=== PATIENT | female | born 1995 | race Caucasian/White ===

== ENCOUNTER 2025-04-12 05:16 | Emergency (ER) | payer OTHER, SELFPAY ==
[2025-04-12 05:18] VITALS: BP 104/70
[2025-04-12 05:34] VITALS: BMI 34.8
[2025-04-12 05:55] LABS: Hematocrit 35.3 % (37.0-47.0); Hemoglobin 11.9 g/dL (12.0-16.0); Mean Corp Hgb Conc. 33.7 g/dL (33.0-37.0); Mean Corpuscular Volume 84.9 fL (81.0-99.0); Nucleated Red Blood Cells % 0 %; Platelet Count 254 10^3/uL (130-400); Red Cell Dist. Width 12.8 % (11.5-14.5)
[2025-04-12 06:10] LABS: ALT (SGPT) 17 U/L (0-35); AST (SGOT) 18 U/L (14-36); Albumin 3.9 g/dl (3.5-5.0); Alkaline Phosphatase 57 U/L (38-126); Blood Urea Nitrogen 9 mg/dl (7-17); Calcium 9.2 mg/dl (8.4-10.2); Carbon Dioxide 22 mmol/L (22-30); Chloride 109 mmol/L (98-107); Estimated Creatinine Clearance > 125 ml/min; Glucose 91 mg/dl (70-99); Potassium 4.1 mmol/L (3.5-5.1); Sodium 136 mmol/L (135-145); Total Protein 6.7 g/dl (6.3-8.2); eGFR > 60.00
[2025-04-12 06:14] LABS: HCG, Serum Qualitative Screen Positive
--- NOTE | 2025-04-12 06:21 | ED.GENMED ---
History of Present Illness
General
Chief Complaint: Problems
Source: patient
Exam Limitations: none
Time Seen by Provider: 04/12/25 06:02
Nursing documentation reviewed up to this point in time: agreed with
History of Present Illness
History of Present Illness:
29-year-old female past medical history of asthma currently 8 weeks by dates G2, P1 presenting with concerns of heavy bleeding a few hours prior to arrival upon awakening. Mild crampiness but no significant ongoing pain. She denies any
ongoing bleeding at this point. It has seemed to stop. Denies any nausea vomiting any additional symptoms no trauma. No discharge.
Review of Systems
Review of Systems
Allergies reviewed?: Yes
All Other Systems: ROS reviewed and negative except as documented in HPI and ROS
Phy Exam
Physical Exam
Physical Exam:
GENERAL: Alert , in no apparent distress
EYE: pupils equal and reactive
NECK: Supple, no significant adenopathy.
ENT: o/p clr, mmm.
CARDIAC: Regular rate and rhythm .
LUNGS: Clear breath sounds bilaterally, no acute respiratory distress, no wheezes/rales/rhonchi
ABDOMEN: Soft, without focal tenderness, no r/g, no cvat
NEUROLOGICAL: Alert and oriented, no focal neuro deficits
SKIN: Warm and dry, skin intact.
MUSCULOSKELETAL: No edema, well perfused.
PSYCH: Normal and appropriate interaction.
Course
Orders/Labs/Results
Orders:
Orders
04/12/25 05:38
Test Result ONCE
04/12/25 05:45
Type And Crossmatch [Type+Screen] Urgent
Beta HCG Quantitative Urgent
Comment: ADD ON
Complete Blood Count/With Diff Urgent
Comprehensive Metabolic Panel Urgent
HCG, Serum Qualitative Screen Urgent
04/12/25 06:11
US 1st Trimester Urgent
Comment:
Reason For Exam: bleeding pelvic pain, 8 weeks by dates
04/12/25 06:12
Add On- LAB Urgent
Tests Added?: serum hcg quant
Abnormal Lab Results
04/12/25
05:45
RBC 4.16 L 10^6/uL
(4.20-5.40)
Hgb 11.9 L g/dL
(12.0-16.0)
Hct 35.3 L %
(37.0-47.0)
Absolute Monos (auto) 0.7 H 10^3/uL
(0.1-0.6)
Chloride 109 H mmol/L
(98-107)
Creatinine 0.5 L mg/dL
(0.6-1.0)
04/12/25 05:45
04/12/25 05:45
Vital Signs
Initial and Last Documented VS:
Initial Vital Signs
Temp Pulse Resp BP Pulse Ox
97.4 F 86 18 104/70 96
04/12/25 05:18 04/12/25 05:18 04/12/25 05:18 04/12/25 05:18 04/12/25 05:18
Last Documented Vital Signs
Temp Pulse Resp BP Pulse Ox
97.4 F 86 18 104/70 96
04/12/25 05:18 04/12/25 05:18 04/12/25 05:18 04/12/25 05:18 04/12/25 06:23
Information
Weeks gestation: Weeks: (7.2)
Location: Location:
MDM/Problems Addressed
MDM/Problems Addressed:
29-year-old female presenting to the emergency department today with concerns of bleeding in setting of early . Currently 8 weeks by dates. She claims that the bleeding has decreased and she is not in any current pain. Ultrasound showed
live intrauterine 7 weeks 2 days heart tones. Patient's blood type a positive stable for close outpatient follow-up. Return precautions given.
*Pulse Oximetry
SaO2: 96
Oxygen Mode of Delivery: Room air
Patient hypoxic: no (96)
*Critical Care Note
Total Time (30-74mins, 75-104mins- exclusive of procedures): Not Applicable
ED Attending Note
-
Portions of this chart may have been created with voice recognition software.� Occasional wrong word or��sound alike� substitutions may have occurred due to the inherent limitations of voice recognition software.
Discharge Plan
Departure
Patient Disposition: Home (Routine Discharge)
Date of Disposition: 04/12/25
Time of Disposition: 08:36
Patient with high blood pressure during this ER visit?: No
Condition: Good
Covid-19: Not Applicable
Discharge Problem:
Threatened miscarriage
Instructions: Threatened Miscarriage (DC)
Referrals:
Maria Dolores Goodwin DO [Family Provider, Family Practice]
Activity Restrictions/Additional Instructions:
You came to the emergency department today with concerns of vaginal bleeding in the setting of early . Here he had a reassuring assessment with live intrauterine . Please follow closely with your certified hand therapist. Return for any
worsening, new or concerning symptoms.
Interventions
Interventions:
*Risk Screen - Suicide Last Done: 04/12/25 05:18
*General Assessment Last Done: 04/12/25 05:34
*Neglect/Abuse Screening Last Done: 04/12/25 05:18
*ED- Fall Risk Assessment Last Done: 04/12/25 05:34
*ED COVID-19 Vaccine History Last Done: 04/12/25 05:34
*ED Influenza Vaccine History Last Done: 04/12/25 05:34
ED-Female Genitourinary Assessment Last Done: 04/12/25 05:34
Discharge Date and Time
Print Language: ARABIC
[2025-04-12 08:35] LABS: Beta HCG Quantitative 175170.00 mIU/ml
[2025-04-12 08:41] VITALS: BP 112/72
== END 2025-04-12 08:41 | disposition home or self-care (01) ==
LOC: EMR 05:16
PROVIDERS: Student in an Organized Health Care Education/Training Program; EMERGENCY PHYSICIAN Student in an Organized Health Care Education/Training Program; FAMILY PHYSICIAN Family Medicine
DX: O20.0 Threatened abortion (principal); O99.511 Diseases of the respiratory system complicating pregnancy, first trimester; J45.909 Unspecified asthma, uncomplicated; Z3A.08 8 weeks gestation of pregnancy
CPT/HCPCS: 99284; 76801; 80053; 84702; 84703; 85025; 86850; 86900; 86901